=== PATIENT | male | born 1975 | race Asian ===

== ENCOUNTER 2021-08-30 05:51 | Emergency (ER) | payer OTHER ==
[~2021-08-30] VITALS: Ht 182.9 cm; Wt 72.6 kg
[2021-08-30] MEDS ORDERED: LIDOCAINE 2% (GLYDO= UROJET) 10 ML JELLY MM ONE ×2 (05:58→06:45)
--- NOTE | 2021-08-30 06:08 | NUR ---
pt bib ra for unable to urinate pt with distended abd.
--- NOTE | 2021-08-30 06:36 | NUR ---
Dr. Parrish speaking with the pt and his .
--- NOTE | 2021-08-30 06:45 | NUR ---
call to [facility] for transport home, I was [facility] by [facility] that [facility] is eta [facility] one hour. This information was relayed to the family.
--- NOTE | 2021-08-30 08:32 | NUR ---
Patient picked up by ambulance.
[2021-08-30 08:40] VITALS: BP 145/98
== END 2021-08-30 08:41 | disposition home or self-care (01) ==
LOC: ER 05:56
DX: R33.9 Retention of urine, unspecified (principal); C41.2 Malignant neoplasm of vertebral column; Z79.899 Other long term (current) drug therapy
CPT/HCPCS: 51702; A4663